=== PATIENT | female | born 1945 | race Caucasian/White ===

== ENCOUNTER → 2016-10-28 | Outpatient (CLI) | payer OTHER, MEDICARE ==
[~2016-10-28] MED LIST: CIPR500T3 PO; LOVA10TA PO; ONDA4TAB10 PO; OXYC-302 PO; POTA20TA89 PO
== END | disposition home or self-care (01) ==
LOC: CFH 15:31
PROVIDERS: ATTEND Internal Medicine
DX: I65.23 Occlusion and stenosis of bilateral carotid arteries (principal); I25.10 Atherosclerotic heart disease of native coronary artery without angina pectoris; E78.1 Pure hyperglyceridemia
CPT/HCPCS: 93880

== ENCOUNTER 2017-07-02 16:45 | Inpatient (IN) | payer OTHER, MEDICARE ==
[~2017-07-02] VITALS: Ht 172.7 cm; Wt 70.7 kg
[2017-07-02] MEDS ORDERED: FURO-93 PO (17:02)
[2017-07-02] MEDS ORDERED: ONDANSETRON ODT 4 MG ONE (17:23)
[2017-07-02] MEDS ORDERED: SODIUM CHLORIDE 0.9% 1,000ML IVBOLUS ONE (17:30)
[2017-07-02] MEDS ORDERED: SODIUM CHLORIDE FLUSH 10ML SYR IVF ONE (17:30)
[2017-07-02] MEDS ORDERED: ONDANSETRON ODT 4 MG PO ONE (17:30)
[2017-07-02 17:45] LABS: MEAN CORPUSCULAR HGB CONC 33.9 g/dL (32.4-35.8); MEAN CORPUSCULAR VOLUME 88.4 fL (80-100); MEAN PLATELET VOLUME 8.2 fL (7.4-10.4); PLATELET COUNT 317 x10^3/uL (130-400); RED BLOOD COUNT 4.77 x10^6/uL (3.82-5.3); RED CELL DISTRIBUTION WIDTH 13.3 % (9.6-15.2)
[2017-07-02 17:56] LABS: ALANINE AMINOTRANSFERASE 19 U/L (12-78); ALBUMIN 2.7 g/dL (3.4-5.0); ANION GAP 10 mmol/L (5-15); CALCIUM 9.9 mg/dL (8.5-10.1); CHLORIDE 97 mmol/L (98-107); CREATININE 1.02 mg/dL (0.55-1.02)
[2017-07-02 17:58] LABS: ALKALINE PHOSPHATASE 113 U/L (45-117); BILIRUBIN,TOTAL 1.2 mg/dL (0.2-1.0); TOTAL PROTEIN 7.5 g/dL (6.4-8.2)
[2017-07-02 18:00] LABS: CULTURE INDICATED? YES; MICROSCOPIC INDICATED
[2017-07-02] MEDS ORDERED: MORPHINE SULFATE 4 MG/ML, 1ML ONE ×2 (18:20→19:55)
[2017-07-02] MEDS: MORPHINE SULFATE 4 MG/ML, 1ML IVPush PRN ×2 (18:24→19:58)
[2017-07-02 18:28] LABS: BASOPHILS # (AUTO) 0.05 x10^3/uL (0-0.1); BASOPHILS % (AUTO) 0 % (0-1); EOSINOPHILS # (AUTO) 0.01 x10^3/uL (0-0.4); EOSINOPHILS % (AUTO) 0 % (1-7); LYMPHOCYTES # (AUTO) 1.73 x10^3/uL (1-3.4); LYMPHOCYTES % (AUTO) 9 % (22-44); MD SCAN; MONOCYTES # (AUTO) 1.74 x10^3/uL (0.2-0.8); MONOCYTES % (AUTO) 10 % (2-9); NEUTROPHILS # (AUTO) 14.88 x10^3/uL (1.8-6.8); NEUTROPHILS % (AUTO) 81 % (42-75)
[2017-07-02] MEDS ORDERED: CEFTRIAXONE PMX 1GM/50ML 50 ML ONE (18:51)
[2017-07-02] MEDS ORDERED: CEFTRIAXONE PMX 1GM/50ML 50 ML IVPB ONE (19:00)
[2017-07-02] MEDS ORDERED: TAMSULOSIN 0.4 MG CAP.ER.24H ONE (20:49)
[2017-07-02 20:54] LABS: CULTURE INDICATED? YES; MICROSCOPIC INDICATED
[2017-07-02] MEDS ORDERED: TAMSULOSIN 0.4 MG CAP.ER.24H PO ONE (21:00)
[2017-07-02] MEDS: SODIUM CHLORIDE 0.9% 1,000 ML IV SCH (21:23)
[2017-07-02] MEDS ORDERED: KETOROLAC 30 MG/1 ML IVPush PRN (21:30)
[2017-07-02] MEDS ORDERED: BISACODYL 10 MG SUPP PR PRN (21:30)
[2017-07-02] MEDS ORDERED: OXYcodone IR 5MG TABLET PO PRN (21:30)
[2017-07-02] MEDS ORDERED: POLYETHYLENE GLYCOL 17 GM PACKET PO PRN (21:30)
[2017-07-02] MEDS: HEPARIN 5,000 UNITS/ML, 1ML SQ SCH (21:30)
[2017-07-02] MEDS ORDERED: CEFTRIAXONE PMX 1GM/50ML 50 ML IV SCH (21:30)
[2017-07-02] MEDS ORDERED: ACETAMINOPHEN 325 MG TABLET PO PRN (21:30)
[2017-07-02] MEDS ORDERED: ONDANSETRON 2MG/ML, 2ML IVPush PRN (21:30)
[2017-07-02] MEDS ORDERED: POTASSIUM CHLORIDE 20 MEQ TAB.ER.PRT PO ONE (21:30)
[2017-07-02] MEDS: POTASSIUM CHLORIDE 20 MEQ TAB.ER.PRT PO SCH (21:30)
[2017-07-02 23:27] VITALS: BP 100/65
[2017-07-03 01:04] VITALS: BP 89/54
[2017-07-03 01:40] VITALS: BP 92/59
[2017-07-03 05:49] LABS: ALBUMIN 2.2 g/dL (3.4-5.0); ANION GAP 10 mmol/L (5-15); CALCIUM 8.8 mg/dL (8.5-10.1); CHLORIDE 105 mmol/L (98-107)
[2017-07-03 05:51] LABS: ALANINE AMINOTRANSFERASE 14 U/L (12-78); ALKALINE PHOSPHATASE 83 U/L (45-117); BILIRUBIN,TOTAL 0.9 mg/dL (0.2-1.0); CREATININE 0.73 mg/dL (0.55-1.02); TOTAL PROTEIN 6.3 g/dL (6.4-8.2)
[2017-07-03 05:58] LABS: MEAN CORPUSCULAR HEMOGLOBIN 30.2 pg (27.0-34.8); MEAN PLATELET VOLUME 8.4 fL (7.4-10.4); PLATELET COUNT 275 x10^3/uL (130-400); RED BLOOD COUNT 4.13 x10^6/uL (3.82-5.3); RED CELL DISTRIBUTION WIDTH 13.8 % (9.6-15.2)
[2017-07-03 06:20] LABS: BASOPHILS # (AUTO) 0.06 x10^3/uL (0-0.1); BASOPHILS % (AUTO) 0 % (0-1); EOSINOPHILS # (AUTO) 0.03 x10^3/uL (0-0.4); EOSINOPHILS % (AUTO) 0 % (1-7); LYMPHOCYTES # (AUTO) 1.69 x10^3/uL (1-3.4); LYMPHOCYTES % (AUTO) 12 % (22-44); MD SCAN; MONOCYTES # (AUTO) 1.51 x10^3/uL (0.2-0.8); MONOCYTES % (AUTO) 11 % (2-9); NEUTROPHILS # (AUTO) 10.94 x10^3/uL (1.8-6.8); NEUTROPHILS % (AUTO) 77 % (42-75)
[2017-07-03] MEDS: POTASSIUM CHLORIDE 20 MEQ TAB.ER.PRT PO SCH ×2 (07:43→21:20)
[2017-07-03] MEDS: SODIUM CHLORIDE 0.9% 1,000 ML IV SCH ×3 (07:43→21:21)
[2017-07-03] MEDS: HEPARIN 5,000 UNITS/ML, 1ML SQ SCH ×3 (07:44→21:21)
[2017-07-03] MEDS: SENNA/DOCUSATE TABLET PO SCH (07:44)
[2017-07-03 07:54] VITALS: BP 94/51
[2017-07-03] MEDS ORDERED: FUROSEMIDE 20 MG TABLET PO SCH (09:00)
[2017-07-03 13:48] VITALS: BP 100/67
[2017-07-03] MEDS ORDERED: ALBUTEROL SULFATE 2.5 MG/3 ML NPPB PRN (17:30)
[2017-07-03] MEDS ORDERED: FENTANYL PF 100 MCG/2ML IV PRN (17:30)
[2017-07-03] MEDS ORDERED: OXYcodone 5 MG/5 ML ORAL.SOL UDC PO PRN (17:30)
[2017-07-03] MEDS ORDERED: hydrALAzine 20 MG/ML, 1ML IV PRN (17:30)
[2017-07-03] MEDS ORDERED: HALOPERIDOL 5 MG/ML IV PRN (17:30)
[2017-07-03] MEDS ORDERED: ACETAMINOPHEN 325 MG TABLET PO PRN (17:30)
[2017-07-03] MEDS ORDERED: MORPHINE SULFATE 4 MG/ML, 1ML IVPush PRN (17:30)
[2017-07-03] MEDS ORDERED: PROMETHAZINE 25 MG/ML, 1ML IV PRN (17:30)
[2017-07-03] MEDS ORDERED: MEPERIDINE/PF 25MG/0.5ML IVPush PRN (17:30)
[2017-07-03] MEDS ORDERED: METOPROLOL 1 MG/ML, 5ML IV PRN (17:30)
[2017-07-03] MEDS ORDERED: EPHEDRINE 50 MG/ML, 1ML IVPush PRN (17:30)
[2017-07-03] MEDS ORDERED: LABETALOL 5MG/ML, 20ML IV PRN (17:30)
[2017-07-03] MEDS ORDERED: PROPOFOL 10 MG/ML, 20ML ONE (18:09)
[2017-07-03] MEDS ORDERED: DEXAMETHASONE 4 MG/ML, 1ML ONE (18:09)
[2017-07-03] MEDS ORDERED: ROCURONIUM 10MG/ML,5ML ONE (18:09)
[2017-07-03] MEDS ORDERED: FENTANYL PF 100 MCG/2ML ONE (18:09)
[2017-07-03] MEDS ORDERED: CEFTRIAXONE 1,000 MG ONE (18:24)
[2017-07-03] MEDS ORDERED: ONDANSETRON ODT 8 MG ONE ×2 (18:26)
[2017-07-03] MEDS ORDERED: GENTAMICIN 80 MG/2 ML ONE (18:37)
[2017-07-03] MEDS ORDERED: NEOSTIGMINE 1 MG/ML, 10ML ONE (18:49)
[2017-07-03] MEDS ORDERED: GLYCOPYRROLATE 0.4 MG/2 ML, 2ML ONE (18:49)
[2017-07-03] MEDS ORDERED: OXYcodone 5 MG/5 ML ORAL.SOL UDC ONE (19:13)
[2017-07-03] MEDS ORDERED: ACETAMINOPHEN 650 MG/20.3 ML UDC ONE (19:13)
[2017-07-03 19:56] VITALS: BP 106/66
[2017-07-03] MEDS ORDERED: TAMSULOSIN 0.4 MG CAP.ER.24H PO ONE (21:30)
[2017-07-03] MEDS ORDERED: CEFTRIAXONE PMX 2GM/50ML 50 ML IV SCH (21:30)
[2017-07-04 00:07] VITALS: BP 93/60
[2017-07-04 05:39] LABS: CHLORIDE 106 mmol/L (98-107)
[2017-07-04 05:46] LABS: ANION GAP 9 mmol/L (5-15); CALCIUM 8.7 mg/dL (8.5-10.1); CREATININE 0.74 mg/dL (0.55-1.02)
[2017-07-04 05:48] LABS: BASOPHILS # (AUTO) 0.02 x10^3/uL (0-0.1); BASOPHILS % (AUTO) 0 % (0-1); EOSINOPHILS % (AUTO) 0 % (1-7); LYMPHOCYTES # (AUTO) 1.09 x10^3/uL (1-3.4); LYMPHOCYTES % (AUTO) 13 % (22-44); MD NO; MEAN CORPUSCULAR HGB CONC 33.8 g/dL (32.4-35.8); MEAN CORPUSCULAR VOLUME 88.9 fL (80-100); MEAN PLATELET VOLUME 8.7 fL (7.4-10.4); MONOCYTES % (AUTO) 6 % (2-9); NEUTROPHILS # (AUTO) 7.11 x10^3/uL (1.8-6.8); NEUTROPHILS % (AUTO) 82 % (42-75); PLATELET COUNT 283 x10^3/uL (130-400); RED BLOOD COUNT 4.05 x10^6/uL (3.82-5.3); RED CELL DISTRIBUTION WIDTH 13.9 % (9.6-15.2)
[2017-07-04] MEDS: SODIUM CHLORIDE 0.9% 1,000 ML IV SCH (06:00)
[2017-07-04 08:01] VITALS: BP 86/47
[2017-07-04 08:50] VITALS: BP 94/53
[2017-07-04] MEDS: POTASSIUM CHLORIDE 20 MEQ TAB.ER.PRT PO SCH (08:56)
[2017-07-04] MEDS: SENNA/DOCUSATE TABLET PO SCH (08:57)
[2017-07-04] MEDS ORDERED: TAMSULOSIN 0.4 MG CAP.ER.24H PO SCH (09:00)
[2017-07-04] MEDS: HEPARIN 5,000 UNITS/ML, 1ML SQ SCH (09:02)
[2017-07-04] MEDS ORDERED: SODIUM CHLORIDE 0.9% 500 ML IV SCH (09:30)
[2017-07-04 13:20] VITALS: BP 96/56
[2017-07-04] MEDS ORDERED: CEFD300C37 PO (14:13)
[2017-07-04] MEDS ORDERED: TAMS-11 PO (14:13)
== END 2017-07-04 15:07 | disposition home or self-care (01) | DRG 854 ==
LOC: ED 17:57 → EDIP 21:39 → 4WST 21:40
PROVIDERS: ADMIT Internal Medicine; ATTEND Internal Medicine
PROC: 0T9B70Z Drainage of Bladder with Drainage Device, Via Natural or Artificial Opening (ICD-10-PCS; 2017-07-02)
PROC: 0T768DZ Dilation of Right Ureter with Intraluminal Device, Via Natural or Artificial Opening Endoscopic (ICD-10-PCS; 2017-07-03)
PROC: 0TC68ZZ Extirpation of Matter from Right Ureter, Via Natural or Artificial Opening Endoscopic (ICD-10-PCS; principal; 2017-07-03 18:30)
DX: A41.9 Sepsis, unspecified organism (principal); E44.0 Moderate protein-calorie malnutrition; E87.5 Hyperkalemia; E87.1 Hypo-osmolality and hyponatremia; R17 Unspecified jaundice; N30.90 Cystitis, unspecified without hematuria; N13.6 Pyonephrosis; E78.5 Hyperlipidemia, unspecified; Z68.23 Body mass index [BMI] 23.0-23.9, adult; Z88.2 Allergy status to sulfonamides; Z85.828 Personal history of other malignant neoplasm of skin; E87.6 Hypokalemia
CPT/HCPCS: 36415; 74018; 74176; 76000; 80048; 80053; 81001; 83605; 83735; 85025; 87040; 87077; 87086; 87147; 87186; 93005; 96361; 96365; 96375; 96376; J0696; J1100; J1644; J1885; J2704; J2710; J3010; Q0162; C1769; C2617; J1580; J7030

== ENCOUNTER → 2017-09-25 | Outpatient (CLI) | payer OTHER, MEDICARE ==
[~2017-09-25] MED LIST changes: +CEFD300C37 PO; +FURO-93 PO; +TAMS-11 PO
== END | disposition home or self-care (01) ==
LOC: CFH 10:29
PROVIDERS: ATTEND Internal Medicine
DX: Z12.31 Encounter for screening mammogram for malignant neoplasm of breast (principal)
CPT/HCPCS: 77067

== ENCOUNTER 2019-02-21 08:35 | Outpatient (CLI) | payer MEDICARE | END 2019-02-21 23:59 | disposition home or self-care (01) | LOC: CFH 08:35 | PROVIDERS: ATTEND Urology | DX: N28.89 Other specified disorders of kidney and ureter (principal); N20.0 Calculus of kidney | CPT/HCPCS: 74018 ==

== ENCOUNTER 2020-10-17 11:40 | Outpatient (CLI) | payer MEDICARE ==
[~2020-10-17 11:40] MED LIST changes: -CIPR500T3 PO; +CIPR500T4 PO; -OXYC-302 PO; +OXYC1TAB12 PO
== END 2020-10-17 23:59 | disposition home or self-care (01) ==
LOC: RAD 11:40
PROVIDERS: ATTEND Physician Assistant
DX: N20.0 Calculus of kidney (principal)
CPT/HCPCS: 74018